=== PATIENT | male | born 1945 | race Caucasian/White ===

== ENCOUNTER 2017-09-04 10:12 | Day surgery (SDC) | payer MEDICARE ==
[2017-08-31 09:26] VITALS: BMI 27.0
[2017-09-04 10:51] VITALS: RESP 16; TEMP 98.3
[2017-09-04] MEDS ORDERED: LIDOCAINE 1% 20 ML VIAL (10MG/ML) FOR IV START INTRADERMA ONE (10:55)
[2017-09-04] MEDS: LACTATED RINGERS 1,000 ML IV SCH ×2 (10:55→11:45)
[2017-09-04] MEDS ORDERED: PROPOFOL 10 MG/ML 20 ML VIAL IV ONE (11:48)
[2017-09-04 12:15] VITALS: BP 114/67; PULSE 76
--- NOTE | 2017-09-04 12:15 | P.PCN ---
Date of Procedure: 09/04/17 Procedure(s) Performed: Procedure: Total colonoscopy. Preoperative diagnosis: Screening for neoplasia, patient has history of polyps. Postoperative diagnosis: Exam within normal limits. Preparation: HalfLytely prep. Sedation: Was provided by anesthesia. Brief clinical history: The patient is a 72-year-old male who is scheduled for this evaluation for screening for neoplasia because of history of polyps. His last exam was in 2009. The patient has no abdominal complaints, bleeding or anemia. Procedure: With the patient on his left lateral decubitus position and after informed consent and adequate sedation, the perianal area was inspected and it did not show any fissures or fistulas. There were no masses felt on digital rectal examination. The Olympus CFQ 160L video colonoscope was then inserted in the rectum in the usual fashion and advanced to the cecum. The preparation was less than ideal with sticky fecal debris and secretions encountered in most areas of the colon did not easily washable. There was no obvious polyps or tumors. The mucosa, where visualized, appeared healthy. There was no obvious diverticular disease or other pathology. I retroflexed the endoscope in the rectum before the endoscope was withdrawn. The patient tolerated the procedure well. Plan: The patient was reassured. With his history, I recommended repeat exam in 5 years. He will follow up with you as planned.
== END 2017-09-04 12:43 | disposition home or self-care (01) ==
LOC: ORWHC2ENDO 10:12
DX: Z12.11 Encounter for screening for malignant neoplasm of colon (principal); Z86.010 Personal history of colon polyps; J45.909 Unspecified asthma, uncomplicated; I10 Essential (primary) hypertension; M19.90 Unspecified osteoarthritis, unspecified site; Z79.82 Long term (current) use of aspirin; Z79.899 Other long term (current) drug therapy
CPT/HCPCS: J2704; G0105

== ENCOUNTER → 2018-09-24 | Outpatient (CLI) | payer MEDICARE ==
--- NOTE | 2018-09-24 18:49 | MR ---
EXAMINATION TYPE: MR iac wo/w con DATE OF EXAM: 09/24/2018 COMPARISON: None HISTORY: Sudden idiopathic hearing loss Rt side x 2 weeks TECHNIQUE: Multiplanar, multisequence images of the brain and brainstem is performed without and with IV contras t, utilizing 7.5 mL intravenous Gadavist . FINDINGS: Diffusion weighted images demonstrate no evidence of a recent infarct or other diffusion ab normality. Midline structures demonstrate normal morphology. The craniocervical junction appears within normal limits. Post contrast images demonstrate no abnormal enhancement. Changes of chronic sinusitis are noted. There are areas of abnormal signal seen scattered throughout the white matter bilaterally which are nonspecific but most typical remote white matter ischemia. There is no evidence of cerebellopontine angle mass. There is no evidence of acoustic schwannoma. No abnormal signal the visualized mastoid air cells. IMPRESSION: 1. No evidence of cerebellopontine angle mass or acoustic schwannoma. 2. Chronic sinusitis. 3. Nonspecific white matter changes most typical remote microvascular ischemia.
== END | disposition home or self-care (01) ==
LOC: RADMRIMAIN 13:28
PROVIDERS: ATTEND Otolaryngology
DX: J32.9 Chronic sinusitis, unspecified (principal); I67.82 Cerebral ischemia; R90.82 White matter disease, unspecified; H91.21 Sudden idiopathic hearing loss, right ear
CPT/HCPCS: 70553; A9585

== ENCOUNTER → 2024-08-05 | Outpatient (CLI) | payer MEDICARE ==
[2024-08-05 09:21] LABS: African American GFR (CKD) >90 (>60 ml/min/1.73 sqM); Blood Urea Nitrogen 20 mg/dL (9-20); Non-African American GFR(CKD) 83 (>60 ml/min/1.73 sqM)
--- NOTE | 2024-08-05 10:59 | CT ---
EXAMINATION TYPE: CT chest w con DATE OF EXAM: 08/05/2024 9:38 AM COMPARISON: None CLINICAL INDICATION: Male, 79 years old with history of R93.89 ABN FIND ON DX IMAGING; PHH, lung nodu le. TECHNIQUE: Multiple axial images were obtained through the chest. Sagittal and coronal reformats were created for review. MIP was performed on a separate workstation. Contrast used:100ml mL of Isovue [address] DLP: 414 mGycm, Automated exposure control for dose reduction was used. FINDINGS: Heart is upper limits of normal size without pericardial effusion. Muscular LAD coronary artery calci fications are present. Mild atherosclerotic arch calcifications with conventional arch vessel branching anatomy. Ectatic low er descending thoracic aorta up to 2.5 cm. Prominent but nonenlarged right hilar lymph node measuring 9 mm. No thoracic lymphadenopathy by CT si ze criteria. Volume loss and opacification medial basilar right lower lobe. Additional bandlike areas of probable scarring in the bilateral lower lungs and also posterior right midlung. Mild emphysematous change. Ot herwise, no consolidation or pleural effusion is seen. Tiny hiatal hernia. Nodular focus of hypervascularity anterior mid liver measuring 8 mm intravascular shunting or flash filling hemangioma. Bones: [facility] mid and lower thoracic spine. IMPRESSION: 1. COPD with mild emphysema. 2. Prominent bandlike areas of probable scarring in the lower lungs. 3. A more focal area of volume loss and opacification medial basilar right lower lobe. Correlate to e xclude any concurrent pneumonia. Consider follow-up in 6 months to reassess. [facility], , 08/05/2024 10:57 AM
== END | disposition home or self-care (01) ==
LOC: RADCTMAIN 08:50
PROVIDERS: ATTEND Family Medicine
DX: R93.89 Abnormal findings on diagnostic imaging of other specified body structures (principal); J44.9 Chronic obstructive pulmonary disease, unspecified; J43.9 Emphysema, unspecified
CPT/HCPCS: 71260; 82565; 84520